=== PATIENT | female | born 1980 | race Caucasian/White ===

== ENCOUNTER → 2018-03-23 | Outpatient (CLI) | payer SELFPAY ==
[~2018-03-23] MED LIST: ONDA4ODT MM
[2018-03-25 13:09] LABS: HIV SCREEN 4TH GENERATION WRFX Non Reactive (Non Reactive)
[2018-03-26 06:16] LABS: HBSAG SCREEN Negative (Negative); HCV ANTIBODY <0.1 (0.0-0.9)
== END ==
LOC: LAB EV 17:59 → LAB SHORT 17:59
PROVIDERS: Family Medicine
DX: Z20.9 Contact with and (suspected) exposure to unspecified communicable disease (principal)
CPT/HCPCS: 84460; 86317; 86803; 87340; 87389

== ENCOUNTER 2020-08-06 15:43 | Emergency (ER) | payer OTHER ==
[~2020-08-06] VITALS: Ht 157.5 cm; Wt 90.7 kg
[2020-08-06] MEDS ORDERED: IBUP600 PO (18:44)
== END 2020-08-06 18:54 | disposition home or self-care (01) ==
LOC: ER 15:43
DX: S16.1XXA Strain of muscle, fascia and tendon at neck level, initial encounter (principal); V49.40XA Driver injured in collision with unspecified motor vehicles in traffic accident, initial encounter; Y92.481 Parking lot as the place of occurrence of the external cause
CPT/HCPCS: 72040; 99284-25; A9270

== ENCOUNTER → 2021-07-06 | Outpatient (CLI) | payer OTHER ==
[~2021-07-06] MED LIST changes: +IBUP600 PO
[2021-07-06 12:42] LABS: BASOPHILS ABSOLUTE AUTO 0.03 K/mm3 (0.00-0.23); BASOPHILS PERCENT AUTO 1 % (0-2); EOSINOPHILS ABSOLUTE AUTO 0.09 K/mm3 (0.00-0.68); EOSINOPHILS PERCENT AUTO 2 % (0-6); Hematocrit 40.4 % (33.0-51.0); Hemoglobin 13.6 g/dL (11.5-16.0); IMMATURE GRAN ABSOLUTE AUTO 0.02 K/mm3 (0.00-0.10); IMMATURE GRAN PERCENT AUTO 0 % (0-1); LYMPHOCYTES ABSOLUTE AUTO 1.65 K/mm3 (0.84-5.20); LYMPHOCYTES PERCENT AUTO 34 % (21-46); MONOCYTES PERCENT AUTO 8 % (4-13); Mean Corpuscular HGB 28.6 pg (26.0-34.0); Mean Corpuscular HGB Conc 33.7 g/dL (31.5-36.5); Mean Corpuscular Volume 85 fL (80-100); NEUTROPHILS ABSOLUTE AUTO 2.73 K/mm3 (1.96-9.15); NEUTROPHILS PERCENT AUTO 56 % (41-73); Platelet Count 242 K/mm3 (150-400); RDW Coefficient Variation 11.7 % (11.7-14.2); RDW Standard Deviation 36.4 fL (35.1-46.3); Red Blood Cell Count 4.76 M/mm3 (3.80-5.20); White Blood Cell Count 4.92 K/mm3 (4.00-11.30)
[2021-07-06 14:34] LABS: Alanine Aminotransfer (ALT/SGP 22 U/L (12-78); Albumin, Blood 3.9 g/dL (3.4-5.0); Albumin/Globulin Ratio 1.2 (0.8-1.8); Alk Phos 45 U/L (50-136); Anion Gap 4 mmol/L (6-16); Aspartate Aminotrans (AST/SGOT 14 U/L (12-37); Bilirubin, Total 0.6 mg/dL (0.1-1.0); Blood Urea Nitrogen 12 mg/dL (8-24); Bun/Creatinine Ratio 15.4 (12.0-20.0); CO2, Blood 25 mmol/L (21-32); Calcium, Blood 8.5 mg/dL (8.5-10.1); Chloride, Blood 109 mmol/L (98-108); Cholesterol 155 mg/dL (50-200); Creatinine, Blood 0.78 mg/dL (0.40-1.00); Free Thyroxine 0.84 ng/dL (0.70-1.60); Globulin, Blood 3.3 g/dL (2.2-4.0); Glomerular Filtration Rate >60 (60-); Glucose, Blood 91 mg/dL (70-99); HDL Cholesterol 52 mg/dL (>39); LDL/HDL RATIO 1.7; Low Density Lipoprotein Chol 86 mg/dL (0-110); Potassium, Blood 4.1 mmol/L (3.5-5.5); Sodium, Blood 138 mmol/L (136-145); Total Protein, Blood 7.2 g/dL (6.4-8.2); Triglycerides 85 mg/dL (30-140); Very Low Density Lipoprot Chol 17 mg/dL (6-28)
== END | disposition home or self-care (01) ==
LOC: LAB 11:55 → LAB SHORT 11:55
PROVIDERS: Physician Assistant
DX: R00.2 Palpitations (principal); R53.83 Other fatigue; Z82.49 Family history of ischemic heart disease and other diseases of the circulatory system
CPT/HCPCS: 80053; 80061; 84439; 84443; 85025

== ENCOUNTER → 2021-09-18 | Outpatient (CLI) | payer OTHER ==
[2021-09-20 15:10] LABS: HPV 16 Negative (Negative); HPV 18 Positive (Negative); HPV OTHER HR TYPES Positive (Negative)
== END ==
LOC: LAB SHORT 12:00 → LAB 12:00
PROVIDERS: Registered Nurse Community Health
DX: Z12.4 Encounter for screening for malignant neoplasm of cervix (principal)
CPT/HCPCS: 87624; 87625; G0123

== ENCOUNTER → 2021-09-18 | Outpatient (CLI) | payer OTHER | LOC: LAB SHORT 09:20 → LAB 09:20 | PROVIDERS: Registered Nurse Community Health | DX: R53.83 Other fatigue (principal) | CPT/HCPCS: 82306; 82728; 83540; 83550 ==

== ENCOUNTER → 2021-11-06 | Outpatient (CLI) | payer OTHER | LOC: LAB SHORT 08:04 | DX: R87.619 Unspecified abnormal cytological findings in specimens from cervix uteri (principal) | CPT/HCPCS: 88305 ==

== ENCOUNTER 2022-10-18 09:00 | Day surgery (SDC) | payer OTHER ==
[~2022-10-18] VITALS: Ht 157.5 cm; Wt 105.2 kg
[2022-10-18] MEDS ORDERED: Acetaminophen325 M1 PO (09:40)
--- NOTE | 2022-10-18 11:00 | NUR ---
10/18/22 Joe Coker 1 MG EPI ADDED TO THE FIRST BAG OF LR PER ORDER FOR IRRIGATION AT OPSITE. ROPIVACAINE 0.5% 30 MLS MIXED & VERIFIED W/ EPI 0.15 MLS (1MG/ML) PER ORDER TO MAKE ROPIVACAINE 0.5% 1:200,000 FOR INJECTION AT OPSITE BY DR C[place].
== END 2022-10-18 13:43 | disposition home or self-care (01) ==
LOC: ORSCSDS 09:00
PROVIDERS: Orthopaedic Surgery
PROC: 0SBD4ZZ Excision of Left Knee Joint, Percutaneous Endoscopic Approach (ICD-10-PCS; principal; 2022-10-18 10:30)
DX: S83.231A Complex tear of medial meniscus, current injury, right knee, initial encounter (principal); S83.282A Other tear of lateral meniscus, current injury, left knee, initial encounter; M17.12 Unilateral primary osteoarthritis, left knee; M76.9 Unspecified enthesopathy, lower limb, excluding foot; E66.01 Morbid (severe) obesity due to excess calories; Z68.41 Body mass index [BMI] 40.0-44.9, adult
CPT/HCPCS: A9270; J0171; J0690; J1885; J2250; J2370; J2405; J2704; J2795; J3010; J7120

== ENCOUNTER → 2024-09-11 | Outpatient (CLI) | payer OTHER ==
[~2024-09-11] MED LIST changes: +Acetaminophen325 M1 PO
== END ==
LOC: LAB 09:25 → LAB SHORT 09:25
DX: N39.0 Urinary tract infection, site not specified (principal)
CPT/HCPCS: 87086